=== PATIENT | female | born 1975 | race Hispanic/Latino ===

== ENCOUNTER 2022-02-12 06:23 | Emergency (ER) | payer OTHER ==
[~2022-02-12] VITALS: Ht 165.1 cm; Wt 99.3 kg
[2022-02-12] MEDS ORDERED: DIAZEPAM 5 MG TAB PO ONE (06:45)
[2022-02-12] MEDS ORDERED: KETOROLAC TROMETHAMINE 60 MG/2 ML VIAL IM ONE (06:45)
[2022-02-12] MEDS ORDERED: LORAZEPAM INJ 2 MG/ML VIAL IM ONE (08:15)
[2022-02-12] MEDS ORDERED: LORAZEPAM INJ 2 MG/ML VIAL ONE (08:19)
[2022-02-12] MEDS ORDERED: HYDROXYZINE HCL25 MG PO (08:22)
== END 2022-02-12 09:00 | disposition home or self-care (01) ==
LOC: ER 06:31
DX: F41.9 Anxiety disorder, unspecified (principal); G44.209 Tension-type headache, unspecified, not intractable; I10 Essential (primary) hypertension; E11.9 Type 2 diabetes mellitus without complications
CPT/HCPCS: 70450; 99283; J1885; J2060

== ENCOUNTER 2024-08-04 23:38 | Emergency (ER) | payer OTHER ==
[~2024-08-04] VITALS: Ht 165.1 cm; Wt 90.7 kg
[~2024-08-04 23:38] MED LIST: CEPHALEXIN500 MG PO; HYDROXYZINE HCL25 MG PO; KETOROLAC TROME10 MG PO; ORPHENADRINE C100 MG PO
[2024-08-04 23:46] VITALS: PULSE 74; RESP 18; TEMP 98.3
[2024-08-05] MEDS: METOCLOPRAMIDE HCL 10 MG/2ML VIAL IV ONE (00:21)
[2024-08-05] MEDS: DIPHENHYDRAMINE HCL INJ 50 MG/ML VIAL IV ONE (00:21)
[2024-08-05] MEDS: LACTATED RINGER'S 1,000 ML INJ ONE (00:21)
[2024-08-05] MEDS: DEXAMETHASONE SOD PHOS INJ 4 MG/ML SDV IV ONE (00:22)
[2024-08-05] MEDS: KETOROLAC TROMETHAMINE 30 MG/ML VIAL IV STA (01:07)
[2024-08-05] MEDS ORDERED: BUTALB-ACETAMI1 EACH PO (01:16)
[2024-08-05] MEDS ORDERED: IBUPROFEN600 MG PO (01:16)
[2024-08-05] MEDS ORDERED: DIPHENHYDRAMINE25 M2 PO (01:16)
[2024-08-05 01:27] VITALS: BP 139/77; PULSE 74; RESP 18; TEMP 98.3; O2SAT 97
== END 2024-08-05 01:27 | disposition home or self-care (01) ==
LOC: FSED 23:52
DX: G44.209 Tension-type headache, unspecified, not intractable (principal); F41.9 Anxiety disorder, unspecified
CPT/HCPCS: 70450; 72125; 80053; 81003; 85025; 96374; 96375; 99283; J1100; J1200; J1885; J2765; J7121